=== PATIENT | female | born 1950 | race Caucasian/White ===

== ENCOUNTER → 2018-11-15 | Outpatient (REF) | payer MEDICARE ==
[~2018-11-15] MED LIST: ALEVE220 M2 PO; AUGMENTIN875TAB PO; CELEBREX200 MG PO; CETIRIZ/PSE1 TAB PO; CICLOPIROX 0.77% EX; FLONASE NASAL50 MCG; FLUARIX QUADRIV1 IN1 IM; HYDROCORTISONE1 % EX; KEFLEX500 MG PO; LEVOTHYROXIN100 MCG PO; LEVOTHYROXIN125 MC1 PO; LEVOTHYROXIN75 MC1 PO; LEVOTHYROXINE PO; LORTAB5 PO; LOSARTAN POT50 MG PO; LOSARTAN POTASS50 MG PO; MEDDOSEPAK PO; MELOXICAM7.5 MG PO; METOPROL TAR100 MG PO; NASONEX50 MCG/AC; NORCO1 TA1 PO; SIMVASTATIN40 MG PO; SYNTHROID125 MCG PO; SYNTHROID75 MCG PO; TIROSINT PO; VALIUM5 MG PO; VALTREX1 GM PO; XYZAL5 MG PO
[2018-11-15 10:03] LABS: CREATININE 1.2 mg/dL (0.5-1.0); MAGNESIUM 1.9 mg/dL (1.6-2.3); POTASSIUM 4.8 mmol/l (3.5-5.1)
[2018-11-15 10:29] LABS: TSH, 3RD GENERATION 1.96 uIU/mL (0.47 - 4.68)
== END | disposition home or self-care (01) ==
LOC: LAB 08:20
PROVIDERS: ATTEND Internal Medicine Geriatric Medicine
DX: E03.9 Hypothyroidism, unspecified (principal); I10 Essential (primary) hypertension; E83.42 Hypomagnesemia

== ENCOUNTER 2020-06-20 22:03 | Emergency (ER) | payer MEDICARE ==
[~2020-06-20] VITALS: Ht 167.6 cm; Wt 75.0 kg
[2020-06-21] VITALS: BP 168/70
[2020-06-21] MEDS ORDERED: DIAZEPAM5 M1 PO (09:52)
[2020-06-21] MEDS ORDERED: HYDROCO/APAP1 TA9 PO (09:58)
== END 2020-06-21 00:30 | disposition home or self-care (01) ==
LOC: ED 22:03
PROC: 0HQ1XZZ Repair Face Skin, External Approach (ICD-10-PCS; principal; 2020-06-20)
DX: S01.81XA Laceration without foreign body of other part of head, initial encounter (principal); I10 Essential (primary) hypertension; E03.9 Hypothyroidism, unspecified; W01.190A Fall on same level from slipping, tripping and stumbling with subsequent striking against furniture, initial encounter; Y92.009 Unspecified place in unspecified non-institutional (private) residence as the place of occurrence of the external cause